=== PATIENT | female | born 1980 | race African-American/Black ===

== ENCOUNTER 2017-04-28 19:35 | Emergency (ER) | payer OTHER ==
[2017-04-28] MEDS ORDERED: Diphtheria,Pertussis(Acell),Tetanus Vaccine 0.5 ML Syringe IM ONE (19:59)
--- NOTE | 2017-04-28 20:04 | EDM.PDOC ---
ED HPI GENERAL MEDICAL PROBLEM - General Chief Complaint: Laceration Stated Complaint: LACERATION RT INDEX FINGER Time Seen by Provider: 04/28/17 20:02 - History of Present Illness INITIAL COMMENTS - FREE TEXT/NARRATIVE: she accidentally cut her right index finger with a clean knife this evening. unsure of last tetanus booster. family history of HTN - Related Data Allergies Allergy/AdvReac Type Severity Reaction Status Date / Time No Known Allergies Allergy Verified 04/28/17 19:59 Home Meds: Home Meds traMADol [Ultram] 50 mg PO ONETIME 04/28/17 [History] Past Medical History Cardiovascular History: Denies: CAD, Heart Failure, Hypertension, [place] Respiratory History: Denies: COPD Endocrine/Metabolic History: Denies: Diabetes, Type I, Diabetes, Type II ED ROS GENERAL - Review of Systems Review Of Systems: See Below (she denies other injury) ED EXAM, SKIN/RASH Exam: See Below General Appearance: Alert Neurological: Alert, Oriented Comments: right index finger with superficial laceration just to the level of the dermis radial aspect of right index finger over the DIP normal tendon function Course - Orders/Labs/Meds Orders: Active Orders 24 hr Category Date Time Status Vaccines to be Administered [RC] PER UNIT ROUTINE Care 04/28/17 19:59 Ordered Meds: Medications Discontinued Medications Generic Name Dose Route Start Last Admin Trade Name Patricia PRN Reason Stop Dose Admin Diphtheria/Tetanus/Acell Pertussis 0.5 ml 04/28/17 19:59 Adacel IM 04/28/17 20:00 .ONCE ONE - Re-Assessments/Exams Free Text/Narrative Re-Assessment/Exam: 04/28/17 20:13 after local cleansing, wound closed with dermal adhesive Departure - Departure Time of Disposition: 20:13 Disposition: Home, Self-Care 01 Condition: Good Clinical Impression: Laceration - Discharge Information Forms: ED Department Discharge Additional Instructions: keep clean with soap and water daily recheck your blood pressure within a week; see a doctor if blood pressure higher than 140/90 mm Hg recheck for signs of infection tetanus booster given. - My Orders Last 24 Hours: My Active Orders 04/28/17 19:59 Vaccines to be Administered [RC] PER UNIT ROUTINE - Assessment/Plan Last 24 Hours: My Active Orders 04/28/17 19:59 Vaccines to be Administered [RC] PER UNIT ROUTINE
[2017-04-28] MEDS ORDERED: Octyl 2-Cyanoacrylate 1 APPLIC TUBE TOP ONE (20:05)
[2017-04-28 20:40] VITALS: BP 175/97
== END 2017-04-28 20:30 | disposition home or self-care (01) ==
LOC: MW.ED 19:35
DX: S61.210A Laceration without foreign body of right index finger without damage to nail, initial encounter (principal); Z23 Encounter for immunization; I11.0 Hypertensive heart disease with heart failure; W26.0XXA Contact with knife, initial encounter
CPT/HCPCS: 90471; 90715; 99282; A9270; 12001